=== PATIENT | male | born 1990 | race Caucasian/White ===

== ENCOUNTER 2017-01-25 17:05 | Emergency (ER) | payer BC ==
[~2017-01-25] VITALS: Ht 175.3 cm; Wt 85.9 kg
[~2017-01-25 17:05] MED LIST: AUGMENTIN875 MG PO
[2017-01-25 18:04] LABS: HEMATOCRIT 46.8 % (38.0-50.0); MCH 30.9 PG (29.0-34.0); MCHC 36.1 G/DL (30.0-36.0); MCV 85.6 FL (86-99); MEAN PLAT.VOLUME 10.4 uM^3 (9.0-12.4); PLATELET COUNT 230 K/uL (156-360); RBC DIS.WIDTH-CV 14.7 % (11.8-14.6); RBC DIS.WIDTH-SD 45.6 % (39-53); RED BLOOD COUNT 5.47 M/uL (4.00-5.50); WHITE BLOOD COUNT 8.1 K/uL (4.1-10.2)
[2017-01-25 18:11] LABS: CHLORIDE 102 mEq/L (99-109); POTASSIUM 3.9 mEq/L (3.7-5.4); SODIUM 138 mEq/L (136-147)
[2017-01-25 18:14] LABS: GLUCOSE 85 mg/dL (70-99)
[2017-01-25 18:15] LABS: ANION GAP 10 MEQ/L (2-14); TOTAL BILIRUBIN 0.7 mg/dL (0.0-1.0)
[2017-01-25 18:17] LABS: ALKALINE PHOSPHATASE 65 IU/L (3-129); GFR ESTIMATE (CALCULATED) > 59 mL/min/
[2017-01-25 18:18] LABS: UREA NITROGEN (BUN) 12 mg/dL (9-23)
[2017-01-25] MEDS ORDERED: BENTYL20 MG PO (22:46)
[2017-01-25] MEDS ORDERED: ZOFRAN ODT4 MG PO (22:46)
[2017-01-25 22:56] LABS: ADD MIUA? NO; BILIRUBIN NEGATIVE; BLOOD NEGATIVE; COLOR YELLOW ((YELLOW)); GLUCOSE (STRIP) NEGATIVE; KETONES 80; LEUKOCYTES NEGATIVE; NITRITE NEGATIVE; PROTEIN (STRIP) 30; SPECIFIC GRAVITY 1.021 (1.000-1.030); UCUL ADDED? NO; UROBILINOGEN 0.2 MG/DL (0.2-1.0)
[2017-01-25 23:47] VITALS: BP 111/65
== END 2017-01-26 00:08 | disposition home or self-care (01) ==
LOC: EME 17:05
DX: R19.7 Diarrhea, unspecified (principal); R10.9 Unspecified abdominal pain; R11.0 Nausea; E86.0 Dehydration
CPT/HCPCS: 80053; 81003; 85027; 87493; 87506; 99281; 99284; J0500; J1885; J2405; J7030